=== PATIENT | female | born 1950 | race Caucasian/White ===

== ENCOUNTER 2016-06-13 06:57 | Day surgery (SDC) | payer OTHER ==
[2016-06-12 15:53] VITALS: BMI 35.4
[2016-06-13] MEDS ORDERED: ROPIVACAINE HCL 0.5% 30ML VIAL ONE (07:16)
[2016-06-13] MEDS ORDERED: MIDAZOLAM HCL 2 MG/2 ML SINGLE DOSE VIAL ONE ×2 (07:17)
[2016-06-13 07:31] LABS: URINE APPEARANCE CLEAR; URINE BILIRUBIN NEGATIVE (NEGATIVE); URINE BLOOD NEGATIVE (NEGATIVE); URINE COLOR YELLOW; URINE GLUCOSE (UA) NEGATIVE (NEGATIVE); URINE KETONE NEGATIVE (NEGATIVE); URINE NITRITE NEGATIVE (NEGATIVE); URINE PROTEIN NEGATIVE (NEGATIVE); URINE UROBILINOGEN NEGATIVE E.U./dl (0.2-1.0)
[2016-06-13 07:37] LABS: URINE LEUK ESTERASE TRACE (NEGATIVE)
[2016-06-13 07:39] LABS: URINE MUCUS RARE; URINE RBC 1 /hpf (0-3); URINE WBC 3 /hpf (3-5)
--- NOTE | 2016-06-13 08:45 | HP ---
Satellite H - Chief Complaint Chief Complaint: right shoulder pain - Past Medical History Allergies/Adverse Reactions: Allergies Allergy/AdvReac Type Severity Reaction Status Date / Time No Known Allergies Allergy Unverified 06/12/16 15:48 - Current Medications Current Medications: Home Medications Medication Instructions Recorded Amlodipine 10/Benazepril 20 1 each PO DAILY capsule 09/07/14 [Lotrel (Nf)] Clopidogrel Bisulfate [Plavix] 75 mg PO DAILY #7 tablet 09/07/14 Metformin HCl 500 mg PO BID #14 tablet 09/07/14 Duloxetine HCl [Cymbalta] 30 mg PO DAILY 06/12/16 Ibuprofen [Motrin -] 400 mg PO PRN PRN 06/12/16 Pregabalin [Lyrica] 100 mg PO HS 06/12/16 Ranitidine HCl [Zantac] 300 mg PO PRN PRN 06/12/16 Rosuvastatin Calcium [Crestor] 10 mg PO DAILY 06/12/16 Oxycodone HCl/Acetaminophen 1 - 2 tab PO Q6H #50 tab MDD 8 06/13/16 [Percocet 5-325 mg Tablet -] Satellite Physical Exam - Physical Examination Vital Signs: Vital Signs Period Temp Pulse Resp BP Sys/Rios Pulse Ox Last 24 Hr 98.1 F-98.1 F 78-78 20-20 153-153/70-70 95 General Appearance: Well Nourished, Well Developed, Alert & Oriented x3 ENT: Clear Lung: Normal air movement Heart: Regular rate & rhythm Extremities: Other (right shoulder- +ttp, decr rom, + empty can, + neer, + thomas, nvi MRi + rct) Neurological: Intact, Alert, Oriented Satellite Impression/Plan - Impression/Plan Impression: right shoulder rct Operative Procedure: right shoulder arthroscopy with RCR, SAD Date to be Performed: 06/13/16
[2016-06-13] MEDS ORDERED: ROCURONIUM BROMIDE 50 MG/5 ML VIAL ONE (09:13)
[2016-06-13] MEDS ORDERED: LIDOCAINE HCL/PF 2% SDV 5ML VIAL ONE (09:13)
[2016-06-13] MEDS ORDERED: PROPOFOL 20 ML ONE (09:13)
[2016-06-13] MEDS ORDERED: ceFAZolin SODIUM 1 GM VIAL IVPB ONE (09:26)
[2016-06-13] MEDS ORDERED: ceFAZolin SODIUM 1 GM VIAL ONE (09:35)
[2016-06-13] MEDS ORDERED: DEXAMETHASONE SOD PHOSPHATE 4 MG/1 ML VIAL ONE (09:51)
[2016-06-13] MEDS ORDERED: ePHEDrine SULFATE 50 MG/1 ML AMPULE ONE (10:03)
[2016-06-13] MEDS ORDERED: NEOSTIGMINE METHYLSULFATE 0.5 MG/ML - 10 ML MDV ONE (10:14)
[2016-06-13] MEDS ORDERED: GLYCOPYRROLATE 0.2 MG/1 ML VIAL ONE (10:15)
--- NOTE | 2016-06-13 10:24 | OP ---
Operative Note - Note: Operative Date: 06/13/16 ([facility]) Pre-Operative Diagnosis: right shoulder rct Operation: right shoulder arthroscopy with RCR, SAD, extensive debridement of bone and soft tissue Implants: arthrex speedbridge Post-Operative Diagnosis: Same as Pre-op Surgeon: Bebeto Alva Drawing Tender: Cabrera Blanco Anesthesiologist/[employer]EN[employer] OR NURSERY TRANSPLANTER: Margi Mott Anesthesia: General, Local Specimens Removed: shavings Estimated Blood Loss (mls): 5 Operative Report Dictated: Yes
[2016-06-13] MEDS ORDERED: ONDANSETRON 4 MG/2 ML VIAL IVPUSH PRN (10:55)
[2016-06-13] MEDS ORDERED: PROMETHAZINE HCL 25 MG/1 ML VIAL IVPUSH PRN (10:55)
[2016-06-13] MEDS ORDERED: oxyCODONE HCL 5 MG TABLET PO PRN (10:55)
[2016-06-13] MEDS ORDERED: LACTATED RINGERS SOLUTION 1,000 ML IV SCH (11:00)
[2016-06-13] MEDS ORDERED: CEFAZOLIN 2 GM/D5W 50 ML IVPB ONE (11:00)
[2016-06-13 13:40] VITALS: TEMP 97.5
[2016-06-13 15:27] VITALS: BP 134/59; PULSE 94
--- NOTE | 2016-06-14 00:36 | SPEC ---
DATE OF SURGERY: 06/13/2016 PREOPERATIVE DIAGNOSIS: Right rotator cuff tear. POSTOPERATIVE DIAGNOSIS: Right rotator cuff tear. PROCEDURE: Arthroscopy right shoulder with extensive debridement in the subacromial space, and arthroscopic SpeedBridge right rotator cuff repair. SURGEON: Bebeto Alva M.D. MARINE FIRER: Kemi Peterson ANESTHESIA: General. CLOSURE: Double row of anchors with a Speedbridge and FiberTape, and 3-0 nylon to skin. ESTIMATED BLOOD LOSS: Negligible. COMPLICATIONS: None. CONDITION: To recovery room in stable condition. DESCRIPTION OF OPERATIVE PROCEDURE: Patient was taken to the operating room on June 13, 2016. Scalene block as well as general anesthesia was administered by the anesthesiologist. Intravenous Kefzol was administered prophylactically prior to the case. Patient was placed in the beach chair position with all prominences well padded. The right shoulder area was prepped and draped in the usual sterile fashion. First a diagnostic arthroscopy of the glenohumeral joint was performed. A posterior portal was made 2 fingerbreadths below the acromion, first with a 15 blade followed by a blunt trocar. Circumferential exam of the glenohumeral joint revealed the following: Intact glenoid and humeral articular cartilage, intact labrum circumferentially, intact biceps and biceps anchor. There were no loose bodies in the axillary pouch. Intact subscapularis to its insertion. Looking superiorly the shoulder had a rotator cuff tear in a crescent formation. The trocar was removed from the shoulder. Next, the posterior trocar was redirected in the subacromial space. An accessory lateral portal was made using a 15 blade followed by a blunt trocar. An anterior portal was made at the level of the AC joint with a spinal needle, a 15 blade, and a blunt trocar. An extensive bursectomy and debridement of soft tissue encasing the humeral head was performed using the ArthroCare device and the shaver. Extensive bone hanging down from the acromion was debrided using the Acromionizer ryan up to the appropriate level. The coracoacromial ligament was identified and detached off the anterior acromion and visualized to drop inferiorly and was further debrided. An acromioplasty was then performed using the Acromionizer ryan up to the appropriate level. All particular debris in the shoulder was debrided using the shaver. Soft tissue encasing the rotator cuff was debrided using the shaver and the ArthroCare device exposing the rotator cuff tear beneath. The leading edge of the rotator cuff was debrided using the shaver. The greater tuberosity was cleaned of soft tissue, and a thin layer of bone was removed giving a nice bleeding surface for the rotator cuff repair. Two medial row anchors with pre-loaded FiberTape suture were malleted down at the articular margin and shuttled through the anterior portal. Each anchor had two limbs of the FiberTape suture. Individually they were shuttled back to the lateral portal. They were passed in a fanned-out position through the rotator cuff using the [employer] suture passer. After this was done, one of the posterior sutures was passed more anteriorly, and one of the anterior sutures was passed posteriorly. They were both passed through the eyelet hole of the lateral anchors and then malleted and screwed into place, both anteriorly and posteriorly. This pulled the rotator cuff down and matted it down to the greater tuberosity. The sutures were cut snug. Probing revealed excellent repair of the rotator cuff to the greater tuberosity. The shoulder was irrigated with copious amounts of irrigation. All three portals were closed with 3-0 nylon. A sterile pressure dressing following by a shoulder immobilizer was placed on the right upper extremity. The patient was awakened from anesthesia and transferred to the recovery room in stable condition. No complications. Estimated blood loss was negligible. Joel XIONG/[id number]
--- NOTE | 2016-06-14 16:50 | PATH ---
Surgical Pathology Report Patient Name: STEVENSON GONZALES [facility]. Rec. #: [id number] /Age/Gender: 1950 (Age: 66) / F Account: [id number] Location: [facility] SURGICAL Taken: 06/13/2016 Received: 06/13/2016 Reported: 06/14/2016 Physicians: Bebeto Alva M.D. Specimen(s) Received RIGHT SHOUDER SHAVINGS Clinical History Right shoulder impingement syndrome with rotator cuff tear Final Diagnosis RIGHT SHOULDER, ARTHROSCOPIC SHAVING: PORTIONS OF SYNOVIUM, CARTILAGE, SKELETAL MUSCLE AND BONE CONSISTENT WITH ARTHROSCOPIC SHAVINGS. Electronically Signed Luis Eduardo Arboleda M.D. Gross Description Received in formalin, labeled "right shoulder shavings," is a 3.5 x 2.0 x 0.3 cm. aggregate of read-yellow soft tissue fragments. A sales account representative portion is submitted in one cassette. /06/13/201606/13/2016
== END 2016-06-13 14:15 | disposition home or self-care (01) ==
LOC: JASU-SURG 06:57
PROVIDERS: ATTEND Orthopaedic Surgery
PROC: 0RBJ4ZZ Excision of Right Shoulder Joint, Percutaneous Endoscopic Approach (ICD-10-PCS; principal; 2016-06-13 08:45)
PROC: 0LQ14ZZ Repair Right Shoulder Tendon, Percutaneous Endoscopic Approach (ICD-10-PCS; 2016-06-13 08:45)
DX: M75.101 Unspecified rotator cuff tear or rupture of right shoulder, not specified as traumatic (principal)
CPT/HCPCS: 81003; 81015; 88304-TC; 94760

== ENCOUNTER 2017-10-29 10:38 | Emergency (ER) | payer OTHER ==
[2017-10-29 10:49] VITALS: BP 180/79; PULSE 74; TEMP 98.1; BMI 38.9
[2017-10-29] MEDS ORDERED: KETOROLAC TROMETHAMINE 30 MG/1 ML VIAL IM ONE (11:11)
[2017-10-29] MEDS ORDERED: KETOROLAC TROMETHAMINE 30 MG/1 ML VIAL ONE (11:15)
--- NOTE | 2017-10-29 11:36 | PDOC ---
History of Present Illness - General Chief Complaint: Back Pain Stated Complaint: RT SIDE PAIN Time Seen by Provider: 10/29/17 10:50 History Source: Patient Exam Limitations: No Limitations - History of Present Illness Initial Comments: 10/29/17 11:31 67 yr female with c/o sciatica left side for 3 days. Pt states she has chronic low back pain and left sciatica followed by (pain management) Pt states she is on vacation and is unable to see her today. Pt denies urine or bowel dysfunction no fever or chills no abd pain. Occurred: reports: other (chronic but the past 3-4 days worse ) Severity: reports: moderate Pain Location: reports: lower extremity (left buttock ) Past History - Past Medical History Allergies/Adverse Reactions: Allergies Allergy/AdvReac Type Severity Reaction Status Date / Time No Known Allergies Allergy Verified 10/29/17 10:44 Home Medications: Ambulatory Orders Amlodipine 10/Benazepril 20 [Lotrel (Nf)] 1 each PO DAILY capsule 09/07/14 Metformin HCl 500 mg PO BID #14 tablet 09/07/14 Duloxetine HCl [Cymbalta] 30 mg PO DAILY 06/12/16 Ibuprofen [Motrin -] 400 mg PO PRN PRN 06/12/16 Pregabalin [Lyrica] 100 mg PO HS 06/12/16 Ranitidine HCl [Zantac] 300 mg PO PRN PRN 06/12/16 Rosuvastatin Calcium [Crestor] 10 mg PO DAILY 06/12/16 Oxycodone HCl/Acetaminophen [Percocet 5-325 mg Tablet -] 1 - 2 tab PO Q6H #50 tab MDD 8 06/13/16 Anemia: No Asthma: No Cancer: No Cardiac Disorders: Yes (5 YRS AGO "MILD STROKE") CVA: No COPD: No DVT: No Dementia: No Diabetes: Yes GI Disorders: Yes Disorders: Yes HTN: Yes Hypercholesterolemia: Yes Liver Disease: Yes Seizures: No Thyroid Disease: Yes - Surgical History Abdominal Surgery: No Appendectomy: No Cardiac Surgery: No Cholecystectomy: Yes Lung Surgery: No Neurologic Surgery: No Orthopedic Surgery: No - Immunization History Immunization Up to Date: Yes - Suicide/Smoking/Psychosocial Hx Smoking History: Never smoked Information on smoking cessation initiated: No Hx Alcohol Use: No Drug/Substance Use Hx: No Substance Use Type: None Hx Substance Use Treatment: No *Physical Exam - Vital Signs Last Vital Signs Temp Pulse Resp BP Pulse Ox 98.1 F 74 16 180/79 100 10/29/17 10:45 10/29/17 10:45 10/29/17 10:45 10/29/17 10:45 10/29/17 10:45 - Physical Exam General Appearance: Yes: Nourished, Appropriately Dressed HEENT: positive: EOMI, KARTHIK Neck: positive: Supple Respiratory/Chest: positive: Lungs Clear, Normal Breath Sounds Cardiovascular: positive: Regular Rhythm, Regular Rate Gastrointestinal/Abdominal: positive: Normal Bowel Sounds, Soft, Other (obese ) . negative: Tender Musculoskeletal: positive: Normal Inspection, Other (neg lumbar tenderness, pos left leg SLR at 45 degrees). negative: CVA Tenderness, CVA Tenderness (R), CVA Tenderness (L), Vertebral Tenderness Extremity: positive: Normal Inspection, Normal Range of Motion Integumentary: positive: Normal Color, Dry, Warm ED Treatment Course - Medications Given in the ED: ED Medications Discontinued Medications Generic Name Dose Route Start Last Admin Trade Name Imelda PRN Reason Stop Dose Admin Ketorolac Tromethamine 30 mg 10/29/17 11:11 10/29/17 11:18 Toradol Injection - IM 10/29/17 11:12 30 mg ONCE ONE Administration Medical Decision Making - Medical Decision Making 10/29/17 11:34 cc: acute on chronic sciatica left side steady gait neg abd pain neg saddle anesthesia neg bowel or bladder pos SLR left side will give toradol now , pt states she does NOT take plavix. dc home with strict follow up with pain management 10/29/17 11:45 *DC/Admit/Observation/Transfer Diagnosis at time of Disposition: Chronic sciatica of left side - Discharge Dispostion Disposition: HOME Condition at time of disposition: Good - Referrals Referrals: Lizeth Adler MD [Primary Care Provider] - Guy Melgoza MD [Staff Physician] - Bebeto Alva MD [Staff Physician] - - Patient Instructions Additional Instructions: follow with your pain management doctor this week or whoever is covering for her please follow with the orthopedist or neurosurgeon for follow up regarding your low back and sciatica pain apply warm compresses to the lower back every 3-4hrs for 20 minutes take tylenol if needed for pain 650mg every 4-6hrs Return to the ER for any urine or bowel dysfunction or any leg weakness numbness unable to walk or any other concerns - Post Discharge Activity
== END 2017-10-29 11:48 | disposition home or self-care (01) ==
LOC: JERFT 10:38
PROC: 3E0233Z Introduction of Anti-inflammatory into Muscle, Percutaneous Approach (ICD-10-PCS; principal; 2017-10-29)
DX: M54.42 Lumbago with sciatica, left side (principal); I10 Essential (primary) hypertension; E78.00 Pure hypercholesterolemia, unspecified; E11.9 Type 2 diabetes mellitus without complications; Z79.84 Long term (current) use of oral hypoglycemic drugs; Z87.19 Personal history of other diseases of the digestive system; Z87.448 Personal history of other diseases of urinary system
CPT/HCPCS: 96372; 99281-25

== ENCOUNTER 2018-08-11 11:07 | Emergency (ER) | payer OTHER ==
[2018-08-11 11:29] VITALS: TEMP 98.5; BMI 36.3
--- NOTE | 2018-08-11 12:27 | PDOC ---
History of Present Illness - General Chief Complaint: Urinary Problem Stated Complaint: VAGINAL BURNING Time Seen by Provider: 08/11/18 11:36 History Source: Patient - History of Present Illness Timing/Duration: reports: constant Past History - Past Medical History Allergies/Adverse Reactions: Allergies Allergy/AdvReac Type Severity Reaction Status Date / Time No Known Allergies Allergy Verified 08/11/18 11:22 Home Medications: Ambulatory Orders Amlodipine 10/Benazepril 20 [Lotrel (Nf)] 1 each PO DAILY capsule 09/07/14 Metformin HCl 500 mg PO BID #14 tablet 09/07/14 Duloxetine HCl [Cymbalta] 30 mg PO DAILY 06/12/16 Ibuprofen [Motrin -] 400 mg PO PRN PRN 06/12/16 Pregabalin [Lyrica] 50 mg PO HS 06/12/16 Ranitidine HCl [Zantac] 150 mg PO PRN PRN 06/12/16 Rosuvastatin Calcium [Crestor] 10 mg PO DAILY 06/12/16 Oxycodone HCl/Acetaminophen [Percocet 5-325 mg Tablet -] 1 - 2 tab PO Q6H #50 tab MDD 8 06/13/16 Amlodipine Besylate [Norvasc -] 5 mg PO DAILY 08/11/18 Cephalexin [Keflex] 500 mg PO BID #14 capsule 08/11/18 Clopidogrel Bisulfate [Plavix -] 75 mg PO DAILY 08/11/18 Ferrous Sulfate [Feosol] 325 mg PO DAILY 08/11/18 Linaclotide [Linzess] 145 mcg PO DAILY 08/11/18 Pantoprazole Sodium [Protonix -] 40 mg PO DAILY 08/11/18 Phenazopyridine HCl [Pyridium] 100 mg PO TID #6 tablet 08/11/18 Polyethylene Glycol 3350 [Miralax (For Bowel Prep) -] 17 gm PO DAILY 08/11/18 Anemia: No Asthma: No Cancer: No Cardiac Disorders: Yes (5 YRS AGO "MILD STROKE") CVA: No COPD: No DVT: No Dementia: No Diabetes: Yes GI Disorders: Yes Disorders: Yes HTN: Yes Hypercholesterolemia: Yes Liver Disease: Yes Seizures: No Thyroid Disease: Yes - Surgical History Abdominal Surgery: No Appendectomy: No Cardiac Surgery: No Cholecystectomy: Yes Lung Surgery: No Neurologic Surgery: No Orthopedic Surgery: No - Immunization History Immunization Up to Date: Yes - Suicide/Smoking/Psychosocial Hx Smoking History: Never smoked Hx Alcohol Use: No Drug/Substance Use Hx: No Substance Use Type: None Hx Substance Use Treatment: No Review of Systems - Review of Systems Constitutional: No: Chills, Fever, Malaise ABD/GI: No: Nausea, Vomiting, Abdominal cramping : Yes: Burning. No: Flank Pain, Hematuria *Physical Exam - Vital Signs Last Vital Signs Temp Pulse Resp BP Pulse Ox 98.5 F 67 18 148/52 L 98 08/11/18 11:27 08/11/18 11:27 08/11/18 11:27 08/11/18 11:27 08/11/18 11:27 - Physical Exam General Appearance: Yes: Appropriately Dressed. No: Apparent Distress HEENT: positive: Normal Voice Neck: positive: Supple Respiratory/Chest: negative: Respiratory Distress Gastrointestinal/Abdominal: positive: Soft. negative: Tender Musculoskeletal: negative: CVA Tenderness Integumentary: positive: Dry, Warm Neurologic: positive: Fully Oriented, Alert, Normal Mood/Affect Medical Decision Making - Medical Decision Making 08/11/18 12:25 68-year-old female, history of HTN, DM, LUIS MIGUEL, s/p CTE/capsule EGD 5 days ago as part of workup for anemia, here with pain with urination 5 days. No hematuria , abdominal pain, flank pain, nausea, vomiting, fever or chills See exam R/o uti No e/o pyelo Exam unremarkable -ua/cx 08/11/18 13:38 UA w/ trace leuks, 7 wbcs and 25 bacteria. Urine culture pending. Given symptoms, will treat at this time and have patient follow-up with her PMD. Of note, no prior sensitivity on records here *DC/Admit/Observation/Transfer Diagnosis at time of Disposition: Dysuria - Discharge Dispostion Disposition: HOME Condition at time of disposition: Good - Prescriptions Prescriptions: Cephalexin [Keflex] 500 mg PO BID #14 capsule Phenazopyridine HCl [Pyridium] 100 mg PO TID #6 tablet - Referrals - Patient Instructions Printed Discharge Instructions: Urinary Tract Infection Additional Instructions: Please take medication as directed and follow up with your PMD - Post Discharge Activity
[2018-08-11 12:58] LABS: EPI CELLS 1.4 /HPF (0-5); URINE APPEARANCE CLEAR; URINE BACTERIA 25.6 /hpf (NEGATIVE); URINE BILIRUBIN NEGATIVE (NEGATIVE); URINE CASTS 3 /hpf (0-8); URINE COLOR YELLOW; URINE GLUCOSE (UA) 2+ (NEGATIVE); URINE KETONE TRACE (NEGATIVE); URINE LEUK ESTERASE TRACE (NEGATIVE); URINE NITRITE NEGATIVE (NEGATIVE); URINE PROTEIN TRACE (NEGATIVE); URINE RBC 2 /hpf (0-4); URINE UROBILINOGEN 0.2 mg/dL (0.2-1.0); URINE WBC 7 /hpf (0-5)
[2018-08-11 14:21] VITALS: BP 136/54; PULSE 62
== END 2018-08-11 14:20 | disposition home or self-care (01) ==
LOC: JER 11:07
DX: N39.0 Urinary tract infection, site not specified (principal); I10 Essential (primary) hypertension; E11.9 Type 2 diabetes mellitus without complications; Z79.84 Long term (current) use of oral hypoglycemic drugs; D50.9 Iron deficiency anemia, unspecified; E78.00 Pure hypercholesterolemia, unspecified; Z86.73 Personal history of transient ischemic attack (TIA), and cerebral infarction without residual deficits; Z79.01 Long term (current) use of anticoagulants
CPT/HCPCS: 81003; 87086; 99282-25

== ENCOUNTER 2020-07-09 09:36 | Inpatient (IN) | payer OTHER ==
[2020-07-09 09:51] VITALS: BMI 34.3
[2020-07-09 11:11] LABS: HEMOGLOBIN 7.1 GM/dL (10.7-15.3); MCH 23.4 pg (25.7-33.7); MCHC 29.7 g/dl (32.0-36.0); MEAN CELL VOLUME 78.6 fl (80-96); PLATELET COUNT 280 K/MM3 (134-434); RBC 3.06 M/mm3 (3.60-5.2); RDW 16.2 % (11.6-15.6); WHITE BLOOD COUNT 11.2 K/mm3 (4.0-10.0)
[2020-07-09 11:34] LABS: CHLORIDE 106 mmol/L (98-107); POTASSIUM 4.3 mmol/L (3.5-5.1); SODIUM 139 mmol/L (136-145)
[2020-07-09 11:36] LABS: CALCIUM 9.6 mg/dL (8.5-10.1)
[2020-07-09 11:37] LABS: ALBUMIN 4.1 g/dl (3.4-5.0); ANION GAP 8 MMOL/L (8-16); BLOOD UREA NITROGEN 24.2 mg/dL (7-18); CO2 25 mmol/L (21-32); GLUCOSE,RANDOM 198 mg/dL (74-106)
[2020-07-09 11:40] LABS: CREATININE 0.9 mg/dL (0.55-1.3); PHOSPHOROUS 3.7 mg/dL (2.5-4.9); SGOT/AST 18 U/L (15-37); SGPT/ALT 26 U/L (13-61)
[2020-07-09 11:41] LABS: BILIRUBIN,TOTAL 0.3 mg/dL (0.2-1)
[2020-07-09 11:42] LABS: TOT PROT 7.8 g/dl (6.4-8.2)
[2020-07-09 11:43] LABS: ALK PHOS 99 U/L (45-117)
[2020-07-09] MEDS ORDERED: PANTOPRAZOLE SODIUM 40 MG VIAL IVPUSH ONE (11:50)
[2020-07-09] MEDS ORDERED: PANTOPRAZOLE SODIUM 40 MG VIAL ONE (12:09)
[2020-07-09 12:29] LABS: IRON SERUM 31 ug/dL (50-175)
[2020-07-09 12:30] LABS: TOTAL IRON BINDING CAPACITY 560 ug/dL (250-450)
[2020-07-09 13:06] LABS: EPI CELLS >36 /uL (0-25.1); HYALINE CASTS 1 /uL (0-3.1); URINE APPEARANCE CLEAR; URINE BACTERIA 98 /uL (0-1359); URINE BILIRUBIN NEGATIVE (NEGATIVE); URINE COLOR YELLOW; URINE GLUCOSE (UA) NEGATIVE (NEGATIVE); URINE KETONE NEGATIVE (NEGATIVE); URINE LEUK ESTERASE 1+ (NEGATIVE); URINE NITRITE NEGATIVE (NEGATIVE); URINE PROTEIN NEGATIVE (NEGATIVE); URINE RBC 6 /uL (0-23.9); URINE UROBILINOGEN 0.2 mg/dL (0.2-1.0); URINE WBC 43 /uL (0-25.8)
[2020-07-09] MEDS: INSULIN SLIDING SCALE (NOVOLOG) 1 VIAL SQ SCH (17:53)
[2020-07-09] MEDS: oxyCODONE HCL 5 MG TABLET PO PRN (21:19)
[2020-07-09] MEDS: PREGABALIN 50 MG CAPSULE PO SCH (21:19)
[2020-07-09] MEDS: TRIAMCINOLONE ACET 0.025% CREAM 15 GM TUBE TP SCH (21:23)
[2020-07-10] MEDS: oxyCODONE HCL 5 MG TABLET PO PRN ×2 (04:31→21:01)
[2020-07-10] MEDS: PREGABALIN 50 MG CAPSULE PO SCH ×3 (05:00→21:01)
[2020-07-10] MEDS: INSULIN SLIDING SCALE (NOVOLOG) 1 VIAL SQ SCH ×2 (06:09→17:06)
[2020-07-10 08:19] LABS: HEMATOCRIT 23.7 % (32.4-45.2); HEMOGLOBIN 7.1 GM/dL (10.7-15.3); MCH 23.5 pg (25.7-33.7); MCHC 29.8 g/dl (32.0-36.0); MEAN CELL VOLUME 78.8 fl (80-96); MEAN PLT VOLUME 10.2 fl (7.5-11.1); PLATELET COUNT 247 K/MM3 (134-434); RBC 3.01 M/mm3 (3.60-5.2); RDW 16.2 % (11.6-15.6); WHITE BLOOD COUNT 10.6 K/mm3 (4.0-10.0)
[2020-07-10] MEDS: amLODIPine BESYLATE 10 MG TABLET (FP) PO SCH (09:27)
[2020-07-10] MEDS: LISINOPRIL 20 MG TABLET PO SCH (09:27)
[2020-07-10] MEDS: ROSUVASTATIN CA 10 MG TABLET (FP) PO SCH (09:27)
[2020-07-10] MEDS: CHOLECALCIFEROL (VIT D3) 1,000 UNIT (25 MCG) TABLET PO SCH (09:28)
[2020-07-10] MEDS: FUROSEMIDE 40 MG TABLET (FP) PO SCH (09:28)
[2020-07-10] MEDS: PANTOPRAZOLE SODIUM 40 MG VIAL IVPUSH SCH (09:28)
[2020-07-10] MEDS ORDERED: PATIENT'S OWN MEDICATION (NON-FORMULARY) (Amlodipine Besylate/Benazepril [Lotrel 10-20 Mg PO SCH (10:00)
[2020-07-10] MEDS ORDERED: PT OWN MED DRAWER 7, Y5N ONE (11:46)
[2020-07-10] MEDS: TRIAMCINOLONE ACET 0.025% CREAM 15 GM TUBE TP SCH ×2 (11:49→21:09)
[2020-07-11] MEDS: PREGABALIN 50 MG CAPSULE PO SCH ×3 (05:35→21:21)
[2020-07-11] MEDS: INSULIN SLIDING SCALE (NOVOLOG) 1 VIAL SQ SCH ×2 (06:09→17:10)
[2020-07-11] MEDS: TRIAMCINOLONE ACET 0.025% CREAM 15 GM TUBE TP SCH ×2 (10:09→21:21)
[2020-07-11] MEDS: LISINOPRIL 20 MG TABLET PO SCH (10:12)
[2020-07-11] MEDS: amLODIPine BESYLATE 10 MG TABLET (FP) PO SCH (10:12)
[2020-07-11] MEDS: PANTOPRAZOLE SODIUM 40 MG VIAL IVPUSH SCH (10:13)
[2020-07-11] MEDS: FUROSEMIDE 40 MG TABLET (FP) PO SCH (10:13)
[2020-07-11] MEDS: ROSUVASTATIN CA 10 MG TABLET (FP) PO SCH ×2 (10:13→21:21)
[2020-07-11] MEDS: CHOLECALCIFEROL (VIT D3) 1,000 UNIT (25 MCG) TABLET PO SCH (10:14)
[2020-07-11] MEDS ORDERED: IRON SUCROSE INJECTION 100 MG in SODIUM CHLORIDE 95 ML IVPB ONE (15:56)
[2020-07-12] MEDS: PREGABALIN 50 MG CAPSULE PO SCH ×3 (05:26→21:13)
[2020-07-12] MEDS: oxyCODONE HCL 5 MG TABLET PO PRN ×2 (05:27→21:15)
[2020-07-12] MEDS: INSULIN SLIDING SCALE (NOVOLOG) 1 VIAL SQ SCH ×2 (06:02→16:39)
[2020-07-12] MEDS ORDERED: PT OWN MED DRAWER 7, Y5N ONE ×2 (09:37→12:36)
[2020-07-12] MEDS ORDERED: IRON SUCROSE INJECTION 100 MG in SODIUM CHLORIDE 95 ML IVPB ONE (11:37)
[2020-07-12] MEDS: TRIAMCINOLONE ACET 0.025% CREAM 15 GM TUBE TP SCH ×2 (11:38→22:58)
[2020-07-12] MEDS: PANTOPRAZOLE SODIUM 40 MG VIAL IVPUSH SCH (11:55)
[2020-07-12] MEDS: amLODIPine BESYLATE 10 MG TABLET (FP) PO SCH (11:55)
[2020-07-12] MEDS: FUROSEMIDE 40 MG TABLET (FP) PO SCH (11:55)
[2020-07-12] MEDS: LISINOPRIL 20 MG TABLET PO SCH (11:55)
[2020-07-12] MEDS: CHOLECALCIFEROL (VIT D3) 1,000 UNIT (25 MCG) TABLET PO SCH (11:56)
[2020-07-12] MEDS: CYANOCOBALAMIN (VITAMIN B-12) 1000 MCG/1 ML VIAL IM SCH (12:40)
[2020-07-12] MEDS ORDERED: INSULIN (NOVOLOG) ASPART 100 UNITS/ML 10ML VIAL ONE (16:45)
[2020-07-12] MEDS: FOLIC ACID 1 MG TABLET (FP) PO SCH (21:14)
[2020-07-12] MEDS: ASCORBIC ACID 500 MG TABLET (FP) PO SCH (21:14)
[2020-07-12] MEDS: ROSUVASTATIN CA 10 MG TABLET (FP) PO SCH (21:14)
[2020-07-13] MEDS: PREGABALIN 50 MG CAPSULE PO SCH ×3 (06:11→21:10)
[2020-07-13] MEDS: INSULIN SLIDING SCALE (NOVOLOG) 1 VIAL SQ SCH ×2 (06:13→16:44)
[2020-07-13 07:47] LABS: HEMATOCRIT 24.3 % (32.4-45.2); HEMOGLOBIN 7.3 GM/dL (10.7-15.3); MCH 24.1 pg (25.7-33.7); MCHC 30.1 g/dl (32.0-36.0); MEAN CELL VOLUME 79.8 fl (80-96); MEAN PLT VOLUME 9.8 fl (7.5-11.1); PLATELET COUNT 244 K/MM3 (134-434); RBC 3.04 M/mm3 (3.60-5.2); RDW 16.1 % (11.6-15.6); WHITE BLOOD COUNT 10.5 K/mm3 (4.0-10.0)
[2020-07-13] MEDS ORDERED: PT OWN MED DRAWER 7, Y5N ONE (10:06)
[2020-07-13] MEDS: amLODIPine BESYLATE 10 MG TABLET (FP) PO SCH (10:08)
[2020-07-13] MEDS: FUROSEMIDE 40 MG TABLET (FP) PO SCH (10:08)
[2020-07-13] MEDS: FOLIC ACID 1 MG TABLET (FP) PO SCH (10:08)
[2020-07-13] MEDS: LISINOPRIL 20 MG TABLET PO SCH (10:08)
[2020-07-13] MEDS: PANTOPRAZOLE SODIUM 40 MG VIAL IVPUSH SCH (10:08)
[2020-07-13] MEDS: CHOLECALCIFEROL (VIT D3) 1,000 UNIT (25 MCG) TABLET PO SCH (10:08)
[2020-07-13] MEDS: ASCORBIC ACID 500 MG TABLET (FP) PO SCH (10:08)
[2020-07-13] MEDS: CYANOCOBALAMIN (VITAMIN B-12) 1000 MCG/1 ML VIAL IM SCH (10:09)
[2020-07-13] MEDS: TRIAMCINOLONE ACET 0.025% CREAM 15 GM TUBE TP SCH ×2 (10:21→21:33)
[2020-07-13] MEDS ORDERED: IRON SUCROSE INJECTION 100 MG in SODIUM CHLORIDE 95 ML IVPB ONE (10:30)
[2020-07-13] MEDS: ROSUVASTATIN CA 10 MG TABLET (FP) PO SCH (21:10)
[2020-07-13] MEDS ORDERED: MAGNESIUM HYDROX 2400MG/30ML ORAL SUSPENSION 30 ML CUP PO PRN (21:37)
[2020-07-13] MEDS: SENNOSIDES 8.6MG TABLET (FP) PO SCH (21:52)
[2020-07-13] MEDS: DOCUSATE SODIUM 100 MG CAPSULE (FP) PO SCH (21:52)
[2020-07-14] MEDS: PREGABALIN 50 MG CAPSULE PO SCH ×3 (06:09→21:05)
[2020-07-14] MEDS: INSULIN SLIDING SCALE (NOVOLOG) 1 VIAL SQ SCH ×2 (06:11→16:29)
[2020-07-14] MEDS ORDERED: PT OWN MED DRAWER 7, Y5N ONE (09:15)
[2020-07-14] MEDS: FOLIC ACID 1 MG TABLET (FP) PO SCH (09:26)
[2020-07-14] MEDS: DOCUSATE SODIUM 100 MG CAPSULE (FP) PO SCH (09:26)
[2020-07-14] MEDS: amLODIPine BESYLATE 10 MG TABLET (FP) PO SCH (09:27)
[2020-07-14] MEDS: CHOLECALCIFEROL (VIT D3) 1,000 UNIT (25 MCG) TABLET PO SCH (09:27)
[2020-07-14] MEDS: LISINOPRIL 20 MG TABLET PO SCH (09:27)
[2020-07-14] MEDS: FUROSEMIDE 40 MG TABLET (FP) PO SCH (09:27)
[2020-07-14] MEDS: ASCORBIC ACID 500 MG TABLET (FP) PO SCH (09:27)
[2020-07-14] MEDS: CYANOCOBALAMIN (VITAMIN B-12) 1000 MCG/1 ML VIAL IM SCH (09:28)
[2020-07-14] MEDS: TRIAMCINOLONE ACET 0.025% CREAM 15 GM TUBE TP SCH ×2 (09:29→21:05)
[2020-07-14] MEDS: PANTOPRAZOLE SODIUM 40 MG VIAL IVPUSH SCH (09:29)
[2020-07-14] MEDS: IRON SUCROSE INJECTION 100 MG in SODIUM CHLORIDE 95 ML IVPB SCH (09:56)
[2020-07-14] MEDS ORDERED: POLYETHYLENE GLYCOL 3350 119 GM BTL PO PRN (12:02)
[2020-07-14] MEDS ORDERED: MAGNESIUM CITRATE 300 ML BOTTLE PO ONE (14:58)
[2020-07-14] MEDS: ROSUVASTATIN CA 10 MG TABLET (FP) PO SCH (21:05)
[2020-07-14] MEDS: SENNOSIDES 8.6MG TABLET (FP) PO SCH (21:05)
[2020-07-15] MEDS: PREGABALIN 50 MG CAPSULE PO SCH ×2 (05:41→13:11)
[2020-07-15] MEDS: INSULIN SLIDING SCALE (NOVOLOG) 1 VIAL SQ SCH (06:09)
[2020-07-15 08:57] LABS: HEMATOCRIT 26.5 % (32.4-45.2); HEMOGLOBIN 7.7 GM/dL (10.7-15.3); MCH 23.8 pg (25.7-33.7); MCHC 29.2 g/dl (32.0-36.0); MEAN CELL VOLUME 81.4 fl (80-96); MEAN PLT VOLUME 10.8 fl (7.5-11.1); PLATELET COUNT 250 K/MM3 (134-434); RBC 3.26 M/mm3 (3.60-5.2); RDW 16.5 % (11.6-15.6); WHITE BLOOD COUNT 11.5 K/mm3 (4.0-10.0)
[2020-07-15] MEDS ORDERED: POLYETHYLENE GLYCOL 3350 119 GM BTL PO SCH (10:00)
[2020-07-15] MEDS: CHOLECALCIFEROL (VIT D3) 1,000 UNIT (25 MCG) TABLET PO SCH (10:33)
[2020-07-15] MEDS: amLODIPine BESYLATE 10 MG TABLET (FP) PO SCH (10:33)
[2020-07-15] MEDS: FUROSEMIDE 40 MG TABLET (FP) PO SCH (10:34)
[2020-07-15] MEDS: ASCORBIC ACID 500 MG TABLET (FP) PO SCH (10:34)
[2020-07-15] MEDS: FOLIC ACID 1 MG TABLET (FP) PO SCH (10:34)
[2020-07-15] MEDS: LISINOPRIL 20 MG TABLET PO SCH (10:34)
[2020-07-15] MEDS: TRIAMCINOLONE ACET 0.025% CREAM 15 GM TUBE TP SCH (10:35)
[2020-07-15] MEDS: CYANOCOBALAMIN (VITAMIN B-12) 1000 MCG/1 ML VIAL IM SCH (10:35)
[2020-07-15] MEDS: PANTOPRAZOLE SODIUM 40 MG VIAL IVPUSH SCH (10:36)
[2020-07-15] MEDS: IRON SUCROSE INJECTION 100 MG in SODIUM CHLORIDE 95 ML IVPB SCH (12:00)
[2020-07-15 16:06] VITALS: BP 122/53; PULSE 78; TEMP 98
== END 2020-07-15 16:10 | disposition home or self-care (01) | DRG 811 ==
LOC: JER 09:36 → JERBED 13:09 → J8W 19:24
PROVIDERS: ADMIT Internal Medicine; ATTEND Internal Medicine
PROC: 0DJ08ZZ Inspection of Upper Intestinal Tract, Via Natural or Artificial Opening Endoscopic (ICD-10-PCS; principal; 2020-07-11 11:45)
DX: D50.0 Iron deficiency anemia secondary to blood loss (chronic) (principal); K25.4 Chronic or unspecified gastric ulcer with hemorrhage; E11.9 Type 2 diabetes mellitus without complications; E87.5 Hyperkalemia; K76.0 Fatty (change of) liver, not elsewhere classified; H40.9 Unspecified glaucoma; K21.9 Gastro-esophageal reflux disease without esophagitis; J45.909 Unspecified asthma, uncomplicated; I25.10 Atherosclerotic heart disease of native coronary artery without angina pectoris; E78.5 Hyperlipidemia, unspecified; F39 Unspecified mood [affective] disorder; E53.8 Deficiency of other specified B group vitamins; E66.9 Obesity, unspecified; Z68.35 Body mass index [BMI] 35.0-35.9, adult; E11.40 Type 2 diabetes mellitus with diabetic neuropathy, unspecified; R35.0 Frequency of micturition; M54.5 Low back pain; M79.7 Fibromyalgia; G89.29 Other chronic pain; G47.30 Sleep apnea, unspecified; K29.60 Other gastritis without bleeding; K59.00 Constipation, unspecified; I11.0 Hypertensive heart disease with heart failure; I50.9 Heart failure, unspecified; Z79.1 Long term (current) use of non-steroidal anti-inflammatories (NSAID); Z79.84 Long term (current) use of oral hypoglycemic drugs
CPT/HCPCS: 36415; 71045-TC-FY; 80053; 81003; 82272; 82550; 82728; 82962; 83540; 83550; 83735; 84100; 84466; 84484; 85027; 87077; 87086; 93005; 93010; 93970-TC; 99285-25; C9803; J1756; U0003

== ENCOUNTER 2023-04-12 04:30 | Day surgery (SDC) | payer OTHER ==
[2023-04-11 10:36] VITALS: BMI 30.4
[2023-04-12] MEDS ORDERED: BUPIVACAINE HCL/PF 0.75% 10 ML VIAL ONE (07:41)
[2023-04-12] MEDS ORDERED: LIDOCAINE HCL/PF 1% SDV 5ML VIAL ONE (07:42)
[2023-04-12] MEDS ORDERED: ACETAMINOPHEN 500 MG TABLET (FP) PO PRN (09:56)
[2023-04-12 10:13] VITALS: RESP 18
[2023-04-12] MEDS ORDERED: LIDOCAINE 1% P/F 10 MG/ML VIAL INF ONE (12:27)
[2023-04-12] MEDS ORDERED: BUPIVACAINE 0.75% IN DEXTROSE/PF 2ML AMPULE NR ONE (12:28)
[2023-04-12 14:54] VITALS: BP 152/68; PULSE 72; TEMP 98.4
== END 2023-04-12 13:20 | disposition home or self-care (01) ==
LOC: JASU-SURG 04:30
PROVIDERS: ATTEND Pain Medicine Pain Medicine
PROC: 3E0T33Z Introduction of Anti-inflammatory into Peripheral Nerves and Plexi, Percutaneous Approach (ICD-10-PCS; 2023-04-12)
PROC: 3E0T3BZ Introduction of Anesthetic Agent into Peripheral Nerves and Plexi, Percutaneous Approach (ICD-10-PCS; principal; 2023-04-12 13:00)
DX: M47.816 Spondylosis without myelopathy or radiculopathy, lumbar region (principal)
CPT/HCPCS: 76000-TC-FY

== ENCOUNTER 2023-05-14 04:30 | Day surgery (SDC) | payer OTHER ==
[2023-05-07 11:39] VITALS: BMI 30.4
[2023-05-14] MEDS ORDERED: LIDOCAINE HCL/PF 1% SDV 5ML VIAL ONE (07:19)
[2023-05-14] MEDS ORDERED: BUPIVACAINE HCL/PF 0.75% 10 ML VIAL ONE (07:19)
[2023-05-14] MEDS ORDERED: LIDOCAINE 1% P/F 10 MG/ML VIAL INF ONE (10:39)
[2023-05-14] MEDS ORDERED: BUPIVACAINE HCL/PF 0.75% 10 ML VIAL NR ONE (10:39)
[2023-05-14] MEDS ORDERED: ACETAMINOPHEN 500 MG TABLET (FP) PO PRN (10:40)
[2023-05-14 11:10] VITALS: BP 151/57; PULSE 86
[2023-05-14 12:22] VITALS: RESP 18; TEMP 98
== END 2023-05-14 12:25 | disposition home or self-care (01) ==
LOC: JASU-SURG 04:30
PROVIDERS: ATTEND Pain Medicine Pain Medicine
PROC: 3E0T33Z Introduction of Anti-inflammatory into Peripheral Nerves and Plexi, Percutaneous Approach (ICD-10-PCS; 2023-05-14)
PROC: 3E0T3BZ Introduction of Anesthetic Agent into Peripheral Nerves and Plexi, Percutaneous Approach (ICD-10-PCS; principal; 2023-05-14 09:30)
DX: M47.816 Spondylosis without myelopathy or radiculopathy, lumbar region (principal)
CPT/HCPCS: 76000-TC-FY

== ENCOUNTER 2023-06-04 04:24 | Day surgery (SDC) | payer OTHER ==
[2023-05-29 14:46] VITALS: BMI 30.4
[2023-06-04] MEDS ORDERED: LIDOCAINE HCL/PF 2% SDV 5ML VIAL ONE (07:09)
[2023-06-04] MEDS ORDERED: LIDOCAINE HCL/PF 1% SDV 5ML VIAL ONE (07:09)
[2023-06-04] MEDS ORDERED: BUPIVACAINE HCL/PF 0.5% (5MG/ML) 10 ML VIAL ONE (07:09)
[2023-06-04] MEDS ORDERED: DEXAMETHASONE SOD PHOSPHATE 10 MG/1 ML VIAL ONE (07:09)
[2023-06-04 08:42] VITALS: RESP 18
[2023-06-04] MEDS ORDERED: LIDOCAINE HCL/PF 2% SDV 5ML VIAL PNB ONE (09:21)
[2023-06-04] MEDS ORDERED: BUPIVACAINE HCL/PF 0.75% 10 ML VIAL NR ONE (09:21)
[2023-06-04] MEDS ORDERED: LIDOCAINE HCL 1% PRESERVATIVE FREE - 30ML VIAL IJ ONE (09:21)
[2023-06-04] MEDS ORDERED: DEXAMETHASONE SOD PHOSPHATE 10 MG/1 ML VIAL IVPUSH ONE (09:21)
[2023-06-04 12:44] VITALS: BP 142/70; PULSE 64; TEMP 98.2
== END 2023-06-04 10:42 | disposition home or self-care (01) ==
LOC: JASU-SURG 04:24
PROVIDERS: ATTEND Pain Medicine Pain Medicine
PROC: 015B3ZZ Destruction of Lumbar Nerve, Percutaneous Approach (ICD-10-PCS; principal; 2023-06-04 08:45)
DX: M47.816 Spondylosis without myelopathy or radiculopathy, lumbar region (principal)
CPT/HCPCS: 76000-TC-FY; J1100

== ENCOUNTER 2023-06-28 03:46 | Day surgery (SDC) | payer OTHER ==
[2023-06-21 17:36] VITALS: BMI 30.4
[2023-06-28] MEDS ORDERED: BUPIVACAINE HCL/PF 0.75% 10 ML VIAL ONE (07:24)
[2023-06-28] MEDS ORDERED: LIDOCAINE HCL 1%, 10 MG/ML (20ML VIAL) ONE (07:24)
[2023-06-28] MEDS ORDERED: LIDOCAINE HCL 2% (20ML MULTI-DOSE VIAL) ONE (07:24)
[2023-06-28 10:11] VITALS: RESP 20
[2023-06-28] MEDS: BUPIVACAINE HCL/PF 0.75% 10 ML VIAL NR ONE (10:42)
[2023-06-28] MEDS: LIDOCAINE HCL/EPINEPHRINE/PF 10 ML VIAL NR ONE (10:42)
[2023-06-28] MEDS: LIDOCAINE HCL 1% PRESERVATIVE FREE - 30ML VIAL IJ ONE (10:42)
[2023-06-28] MEDS: DEXAMETHASONE SOD PHOSPHATE 10 MG/1 ML VIAL IM ONE (10:42)
[2023-06-28 11:22] VITALS: BP 146/59; PULSE 63; TEMP 97.8
[2023-06-28] MEDS ORDERED: ACETAMINOPHEN 500 MG TABLET (FP) PO PRN (13:37)
== END 2023-06-28 10:40 | disposition home or self-care (01) ==
LOC: JASU-SURG 03:46
PROVIDERS: ATTEND Pain Medicine Pain Medicine
PROC: 015B3ZZ Destruction of Lumbar Nerve, Percutaneous Approach (ICD-10-PCS; principal; 2023-06-28 11:15)
DX: M47.816 Spondylosis without myelopathy or radiculopathy, lumbar region (principal)
CPT/HCPCS: 76000-TC-FY; J1100

== ENCOUNTER 2023-07-19 07:31 | Day surgery (SDC) | payer OTHER ==
[2023-07-19 08:26] VITALS: BMI 30.4
[2023-07-19] MEDS ORDERED: CEFAZOLIN 2 GM in DEXTROSE 5%-WATER - 50 ML IVPB ONE (09:30)
[2023-07-19] MEDS ORDERED: ONDANSETRON 4 MG/2 ML VIAL IVPUSH PRN (09:35)
[2023-07-19] MEDS ORDERED: oxyCODONE HCL 5 MG TABLET PO PRN (09:35)
[2023-07-19] MEDS ORDERED: LACTATED RINGERS SOLUTION 1,000 ML IV SCH (09:45)
[2023-07-19] MEDS ORDERED: FENTANYL CITRATE/PF 50 MCG/ML VIAL ONE ×2 (10:01→12:34)
[2023-07-19] MEDS ORDERED: BUPIVACAINE HCL/PF 0.5% (5 MG/ML) 30 ML VIAL IJ ONE (10:01)
[2023-07-19] MEDS ORDERED: MIDAZOLAM HCL 2 MG/2 ML SINGLE DOSE VIAL ONE ×2 (10:01→10:46)
[2023-07-19] MEDS ORDERED: DEXAMETHASONE SOD PHOSPHATE/PF 10 MG/ML SDV ONE (10:01)
[2023-07-19] MEDS ORDERED: ACETAMINOPHEN INJECTION 100 ML IVPB ONE (10:01)
[2023-07-19] MEDS ORDERED: BUPIVACAINE HCL/EPINEPHRINE/PF 30 ML VIAL IJ ONE (10:08)
[2023-07-19] MEDS ORDERED: PROPOFOL 20 ML ONE (10:37)
[2023-07-19] MEDS ORDERED: ceFAZolin SODIUM 1 GM VIAL ONE (10:42)
[2023-07-19] MEDS ORDERED: TRANEXAMIC ACID 1000 MG/10 ML VIAL ONE (10:47)
[2023-07-19] MEDS ORDERED: oxyCODONE HCL 5 MG TABLET ONE (13:11)
[2023-07-19] MEDS: oxyCODONE HCL 5 MG TABLET PO PRN (13:13)
[2023-07-19 13:18] VITALS: RESP 18; TEMP 97
[2023-07-19 13:53] VITALS: BP 146/64; PULSE 62
== END 2023-07-19 13:50 | disposition home or self-care (01) ==
LOC: FASU 07:31
PROVIDERS: ATTEND Orthopaedic Surgery
PROC: 0RNK4ZZ Release Left Shoulder Joint, Percutaneous Endoscopic Approach (ICD-10-PCS; principal; 2023-07-19 11:00)
PROC: 0LM24ZZ Reattachment of Left Shoulder Tendon, Percutaneous Endoscopic Approach (ICD-10-PCS; 2023-07-19 11:00)
DX: S46.012D Strain of muscle(s) and tendon(s) of the rotator cuff of left shoulder, subsequent encounter (principal); M75.02 Adhesive capsulitis of left shoulder; M75.22 Bicipital tendinitis, left shoulder; M75.52 Bursitis of left shoulder; M65.812 Other synovitis and tenosynovitis, left shoulder; S43.432D Superior glenoid labrum lesion of left shoulder, subsequent encounter; X58.XXXD Exposure to other specified factors, subsequent encounter; Y92.9 Unspecified place or not applicable; Y93.9 Activity, unspecified
CPT/HCPCS: 36415; 82010; 82962; 94760; C1713; J0131